=== PATIENT | female | born 1960 | race Caucasian/White ===

== ENCOUNTER 2023-08-07 14:43 | Emergency (ER) | payer BC ==
[2023-08-07 14:58] VITALS: TEMP 98.5
--- NOTE | 2023-08-07 15:49 | XRAY ---
Indication: Hypertension. Comparison: None Portable chest demonstrate minimal left base infiltrate versus atelectasis. Remaining heart, right lung, and bony thorax normal.
[2023-08-07] MEDS ORDERED: EMLA Cream 5 GM TP ONE ×2 (15:59→16:00)
[2023-08-07 16:08] LABS: Appearance Clear (Clear); Bacteria None Seen /HPF (None Seen); Bilirubin Negative (Negative); Blood Negative (Negative); Epithelial Cells None Seen /HPF (None Seen); Glucose, Urine Negative (Negative); Hyaline Casts NONE SEEN /LPF (0-2); Ketones Negative (Negative); Leukocyte Esterase Trace (Negative); Nitrite Negative (Negative); Ph 6.5 (4.6-8.0); Protein,Urine Dip Negative (Negative); RBC 0-2 /HPF (0-5); Specific Gravity <=1.005 (1.005-1.030); Urobilinogen 0.2 mg/dL (0.2)
[2023-08-07 16:13] LABS: ADD URINE CULTURE? NO (NO)
[2023-08-07 16:37] LABS: Absolute Neutrophil Ct (ANC) 5.76 x10^3/uL (1.4-6.9); BASOPHIL % 0.3 % (0.0-0.4); Basophil (Absolute #) 0.02 x10^3/uL (0-0.4); Eosinophil % 1.2 % (0.00-5.0); Eosinophil (Absolute #) 0.09 x10^3/uL (0-0.5); IMMATURE GRAN # 0.01 x10^3u/L (0.00-0.03); IMMATURE GRAN % 0.1 % (0.00-0.4); Lymphocyte (Absolute #) 1.43 x10^3/uL (1.0-4.6); Lymphocytes % 18.6 % (24.0-44.0); Mean Cell Volume 90.1 fL (78-100); Mean Corpuscular Hgb Concent. 33.3 g/dL (32-36); Mean Platelet Volume 9.9 fL (7.5-11.0); Monocyte (Absolute #) 0.39 x10^3/uL (0.0-1.3); Monocytes % 5.1 % (0.0-12.0); Neutrophil % 74.7 % (36.0-66.0); Platelet Count 192 x10^3/uL (150-450); Red Blood Count 4.33 x10^6/uL (4.1-5.4); Red Cell Distribution Width 11.9 % (11.5-14.0); White Blood Count 7.7 x10^3/uL (4.0-10.5)
[2023-08-07 17:04] LABS: ALBUMIN 4.6 g/dL (3.5-5.0); ANION GAP 11.9 MEQ/L (5-15); BILIRUBIN,TOTAL 0.4 mg/dL (0.2-1.3); Calcium 9.6 mg/dL (8.4-10.2); Creatinine 1 0.98 mg/dL (0.52-1.04); EST GLOMERULAR FILTRATION RATE 64.9 ML/MIN; NT PRO BNPII 52.4 pg/mL (<300); Total Protein 7.7 g/dL (6.3-8.2)
[2023-08-07] MEDS ORDERED: CLONIDINE 0.1 MG TABLET PO ONE (17:09)
[2023-08-07] MEDS ORDERED: CLONIDINE 0.1 MG TABLET ONE (17:12)
[2023-08-07 17:28] VITALS: O2SAT 98
--- NOTE | 2023-08-07 17:47 | ERPHSYRPT ---
- History of Present Illness Time Seen by Provider: 08/07/23 14:52 Source: patient Exam Limitations: no limitations Patient Subjective Stated Complaint: hypertension Triage Nursing Assessment: Pt brought to the ER by her , hypertensive, denies pain, was at the pharmacy getting a shingles vaccination and decided to test her blood pressure and it was in the 190's, pt states that she usually runs really low, pulses normal, skin n/w/d, no difficulty breathing, doesn't appear to be in any distress Physician History: 62 years old female with history of hyperlipidemia presented in the ER with chief complaint of elevated blood pressure. Patient reports she was at routine vaccination when she checked her blood pressure at pharmacy and it was 193 systolic. She checked it again and it was still high. Patient denies any chest pain palpitations or shortness of breath. No headache, blurry vision, numbness tingling or focal weakness. No abdominal pain nausea or vomiting reported. Patient reports usually her blood pressure is well-controlled but on last office visit her blood pressure was on the upper side of the normal. Does report taking extra salt for the last couple of days. Patient blood pressure is 178 systolic on presentation to ER. Allergies/Adverse Reactions: Penicillins Allergy (Verified 08/07/23 14:58) Home Medications: Atorvastatin Calcium 20 mg PO DAILY 08/07/23 [History] Fexofenadine HCl [Mine Allergy] 60 mg PO DAILY 08/07/23 [History] Timolol [Betimol] 1 drop OP DAILY 08/07/23 [History] Hx Influenza Vaccination/Date Given: Yes Hx Pneumococcal Vaccination/Date Given: No Travel Risk - International Travel Have you traveled outside of the country in past 3 weeks: No - Coronavirus Screening Are you exhibiting any of the following symptoms?: No Close contact with a COVID-19 positive Pt in past 14-21 Days: No - Vaccine Status Have you recieved a Covid-19 vaccination: Yes [employer]: [employer] - Vaccination Dates Date of 2cond Vaccination (if applicable): 2020 - Review of Systems Constitutional: No Symptoms Eyes: No Symptoms Ears, Nose, & Throat: No Symptoms Respiratory: No Symptoms Cardiac: No Symptoms Abdominal/Gastrointestinal: No Symptoms Genitourinary Symptoms: No Symptoms Musculoskeletal: No Symptoms Skin: No Symptoms Neurological: No Symptoms Psychological: No Symptoms Hematologic/Lymphatic: No Symptoms Immunological/Allergic: No Symptoms - Past Medical History Pertinent Past Medical History: Yes ENT History: Glaucoma Other Medical History: skin cancer - Past Surgical History Past Surgical History: Yes Female Surgical History: Section - Social History Smoking Status: Never smoker Exposure to second hand smoke: No Drug Use: none Patient Lives Alone: No - Nursing Vital Signs Nursing Vital Signs: Initial Vital Signs Temperature 98.5 F 08/07/23 14:48 Pulse Rate 84 08/07/23 14:48 Respiratory Rate 13 08/07/23 14:48 Blood Pressure 187/74 08/07/23 14:48 O2 Sat by Pulse Oximetry 98 08/07/23 14:48 Pain Scale Pain Intensity 0 - Physical Exam General Appearance: no apparent distress Eye Exam: PERRL/EOMI Ears, Nose, Throat Exam: normal ENT inspection, pharynx normal, moist mucous membranes Neck Exam: normal inspection, non-tender, supple, full range of motion Respiratory Exam: normal breath sounds, lungs clear Cardiovascular Exam: regular rate/rhythm, normal heart sounds Gastrointestinal/Abdomen Exam: soft, normal bowel sounds, No tenderness Back Exam: normal inspection, normal range of motion Extremity Exam: normal inspection, normal range of motion Neurologic Exam: alert, oriented x 3, cooperative, spectroscopist II-XII nml as tested, nml cerebellar function, nml station & gait, sensation nml, No normal mood/affect (Anxious), No motor deficits Skin Exam: normal color SpO2 Interpretation: normal SpO2: 98 O2 Delivery: Room Air - Course EKG Interpreted by Me: RATE, Sinus Rhythm, NORMAL AXIS, NORMAL INTERVALS Ordered Tests: Active Orders 24 hr Category Date Time Status Grounds Maintenance Manager STAT Care 08/07/23 15:20 Active EKG-ER Only STAT Care 08/07/23 15:20 Active IV Insertion STAT Care 08/07/23 15:20 Active CHEST 1 VIEW (PORTABLE) Stat Exams 08/07/23 15:20 Completed CBC W DIFF Stat Lab 08/07/23 16:25 Completed CMP Stat Lab 08/07/23 16:25 Completed NT PRO BNPII Stat Lab 08/07/23 16:25 Completed TROPONIN Q4H Lab 08/07/23 16:25 Completed TROPONIN Q4H Lab 08/07/23 19:30 Ordered TROPONIN Q4H Lab 08/07/23 23:30 Ordered UA W/RFX UR CULTURE Stat Lab 08/07/23 15:54 Completed Medication Summary Discontinued Medications Generic Name Dose Route Start Last Admin Trade Name Marbella PRN Reason Stop Dose Admin Clonidine 0.1 mg 08/07/23 17:09 08/07/23 17:13 Clonidine Hcl 0.1 Mg Tablet PO 08/07/23 17:10 0.1 mg STAT ONE Administration Clonidine Confirm 08/07/23 17:12 Clonidine Hcl 0.1 Mg Tablet Administered 08/07/23 17:13 Dose 0.1 mg .ROUTE .STK-MED ONE Lidocaine/Prilocaine 2.5 gm 08/07/23 15:59 08/07/23 16:01 Lidocaine/Prilocaine 5 Gm 5 Gm Tube TP 08/07/23 16:00 2.5 gm STAT ONE Administration Lidocaine/Prilocaine Confirm 08/07/23 16:00 Lidocaine/Prilocaine 5 Gm 5 Gm Tube Administered 08/07/23 16:01 Dose 5 gm TP .STK-MED ONE Lab/Rad Data: Laboratory Result Diagrams 08/07/23 16:25 08/07/23 16:25 Laboratory Results 08/07/23 08/07/23 08/07/23 Range/Units 16:25 16:25 16:25 WBC 7.7 (4.0-10.5) x10^3/uL RBC 4.33 (4.1-5.4) x10^6/uL Hgb 13.0 (12.0-16.0) g/dL Hct 39.0 (35-47) % MCV 90.1 (78-100) fL MCH 30.0 (26-32) pg MCHC 33.3 (32-36) g/dL RDW 11.9 (11.5-14.0) % Plt Count 192 (150-450) x10^3/uL MPV 9.9 (7.5-11.0) fL Gran % 74.7 H (36.0-66.0) % Immature Gran % (Auto) 0.1 (0.00-0.4) % Nucleat RBC Rel Count 0.0 (0.00-0.1) % Eos # (Auto) 0.09 (0-0.5) x10^3/uL Immature Gran # (Auto) 0.01 (0.00-0.03) x10^3u/L Absolute Lymphs (auto) 1.43 (1.0-4.6) x10^3/uL Absolute Monos (auto) 0.39 (0.0-1.3) x10^3/uL Absolute Nucleated RBC 0.00 (0.00-0.01) x10^3u/L Lymphocytes % 18.6 L (24.0-44.0) % Monocytes % 5.1 (0.0-12.0) % Eosinophils % 1.2 (0.00-5.0) % Basophils % 0.3 (0.0-0.4) % Absolute Granulocytes 5.76 (1.4-6.9) x10^3/uL Basophils # 0.02 (0-0.4) x10^3/uL Sodium 136 L (137-145) mmol/L Potassium 4.0 (3.5-5.1) mmol/L Chloride 103 (98-107) mmol/L Carbon Dioxide 26 (22-30) mmol/L Anion Gap 11.9 (5-15) MEQ/L BUN 16 (7-17) mg/dL Creatinine 0.98 (0.52-1.04) mg/dL Estimated GFR 64.9 ML/MIN Glucose 135 H (74-106) mg/dL Calcium 9.6 (8.4-10.2) mg/dL Total Bilirubin 0.40 (0.2-1.3) mg/dL AST 31 (14-36) U/L ALT 42 H (0-35) U/L Alkaline Phosphatase 99 (38-126) U/L Troponin I < 0.012 (0.000-0.034) ng/mL NT-Pro-B Natriuret Pep 52.4 (<300) pg/mL Serum Total Protein 7.7 (6.3-8.2) g/dL Albumin 4.6 (3.5-5.0) g/dL Urine Color (Yellow) Urine Appearance (Clear) Urine pH (4.6-8.0) Ur Specific [place] (1.005-1.030) Urine Protein (Negative) Urine Glucose (UA) (Negative) mg/dL Urine Ketones (Negative) Urine Blood (Negative) Urine Nitrite (Negative) Urine Bilirubin (Negative) Urine Urobilinogen (0.2) mg/dL Ur Leukocyte Esterase (Negative) U Hyaline Cast (Auto) (0-2) /LPF Urine Microscopic RBC (0-5) /HPF Urine Microscopic WBC (0-5) /HPF Ur Epithelial Cells (None Seen) /HPF Urine Bacteria (None Seen) /HPF Urine Culture Reflexed (NO) 08/07/23 Range/Units 15:54 WBC (4.0-10.5) x10^3/uL RBC (4.1-5.4) x10^6/uL Hgb (12.0-16.0) g/dL Hct (35-47) % MCV (78-100) fL MCH (26-32) pg MCHC (32-36) g/dL RDW (11.5-14.0) % Plt Count (150-450) x10^3/uL MPV (7.5-11.0) fL Gran % (36.0-66.0) % Immature Gran % (Auto) (0.00-0.4) % Nucleat RBC Rel Count (0.00-0.1) % Eos # (Auto) (0-0.5) x10^3/uL Immature Gran # (Auto) (0.00-0.03) x10^3u/L Absolute Lymphs (auto) (1.0-4.6) x10^3/uL Absolute Monos (auto) (0.0-1.3) x10^3/uL Absolute Nucleated RBC (0.00-0.01) x10^3u/L Lymphocytes % (24.0-44.0) % Monocytes % (0.0-12.0) % Eosinophils % (0.00-5.0) % Basophils % (0.0-0.4) % Absolute Granulocytes (1.4-6.9) x10^3/uL Basophils # (0-0.4) x10^3/uL Sodium (137-145) mmol/L Potassium (3.5-5.1) mmol/L Chloride (98-107) mmol/L Carbon Dioxide (22-30) mmol/L Anion Gap (5-15) MEQ/L BUN (7-17) mg/dL Creatinine (0.52-1.04) mg/dL Estimated GFR ML/MIN Glucose (74-106) mg/dL Calcium (8.4-10.2) mg/dL Total Bilirubin (0.2-1.3) mg/dL AST (14-36) U/L ALT (0-35) U/L Alkaline Phosphatase (38-126) U/L Troponin I (0.000-0.034) ng/mL NT-Pro-B Natriuret Pep (<300) pg/mL Serum Total Protein (6.3-8.2) g/dL Albumin (3.5-5.0) g/dL Urine Color Yellow (Yellow) Urine Appearance Clear (Clear) Urine pH 6.5 (4.6-8.0) Ur Specific [place] <=1.005 (1.005-1.030) Urine Protein Negative (Negative) Urine Glucose (UA) Negative (Negative) mg/dL Urine Ketones Negative (Negative) Urine Blood Negative (Negative) Urine Nitrite Negative (Negative) Urine Bilirubin Negative (Negative) Urine Urobilinogen 0.2 (0.2) mg/dL Ur Leukocyte Esterase Trace A (Negative) U Hyaline Cast (Auto) NONE SEEN (0-2) /LPF Urine Microscopic RBC 0-2 (0-5) /HPF Urine Microscopic WBC 3-5 (0-5) /HPF Ur Epithelial Cells None Seen (None Seen) /HPF Urine Bacteria None Seen (None Seen) /HPF Urine Culture Reflexed NO (NO) - Progress Progress: improved, re-examined Progress Note: 08/07/23 17:47 62-year-old is evaluated in the ER for elevated blood pressure. Patient has no history of hypertension but her routine blood pressure check was in 190s earlier. On presentation in the ER it is in 170s. I have rechecked later in the ER and it is 201 systolic. EKG showed normal sinus rhythm with no acute ischemic changes. Chest x-ray negative for any acute cardiopulmonary findings. Normal white count, unremarkable chemistries and negative troponins. No protein in the urine. Normal renal functions. I have given her clonidine and blood pressure improved in 150s. I believe patient does have hypertension and I will start her on low-dose losartan . I also recommended monitoring her blood pressure regularly, keeping a log and follow-up with primary care early next shanelle marin. She does not have any signs of endorgan damage. Do not think she needs any other workup and stable for discharge. Discussed signs symptoms of worsening needing return to ER which she seems understanding. Also discussed signs symptoms of hypotension and not to take her blood pressure medication if it is less than 120. 08/07/23 17:51 Counseled pt/family regarding: lab results, diagnosis, need for follow-up, rad results Medical Desision Making - Independent Historian Additional History obtained from: Spouse - Diagnostic Testing Diagnostic test were ordered, analyzed, and reviewed by me: Yes Radiological Interpretation: Reviewed by me - Risk of complications The pt has a mod risk of morbidity or mortality based on: Need for prescription drug management - Departure Departure Disposition: Home Clinical Impression: Hypertension Condition: Stable Critical Care Time: No Referrals: ABBY CRAIG NP [Primary Care Provider] - Follow Up with PCP/3 days Instructions: Malignant Hypertension (DC) Additional Instructions: Take low-salt diet. Regular exercise. Monitor your blood pressure regularly, keep a log and follow-up with primary care for reevaluation. Take losartan after checking your blood pressure in the morning and do not take if it is less than 130. Return to ER for uncontrolled hypertension or if having chest pain palpitations/shortness of breath/headache, blurry vision, numbness tingling or focal weakness etc. Prescriptions: Losartan Potassium 25 mg PO DAILY #30 tablet
[2023-08-07 18:05] VITALS: BP 165/82; PULSE 75; RESP 22
== END 2023-08-07 18:08 | disposition home or self-care (01) ==
LOC: ED 14:43
DX: I10 Essential (primary) hypertension (principal); E78.5 Hyperlipidemia, unspecified; Z79.899 Other long term (current) drug therapy
CPT/HCPCS: 36415; 71045; 80053; 81001; 83880; 84484; 85025; 93005; 93041; 99284; A9270-GY